=== PATIENT | female | born 1965 | race Caucasian/White ===

== ENCOUNTER 2016-08-06 09:03 | Emergency (ER) | payer SELFPAY ==
--- NOTE | 2016-08-06 09:20 | Emergency Department Record ---
History of Present Illness - General Chief complaint: Itching Stated complaint: ITCHING ALL OVER Time Seen by Provider: 08/06/16 09:19 Source: Patient Mode of Arrival: Ambulatory Limitations: No limitations - History of Present Illness Initial comments: The patient has been staying in a motel for almost a week and now is here due to an itchy rash for 3-4 days. She denies any new medicines, foods, but is using new soaps, towels and is sleeping in different sheets. She denies any recent illnesses, new medicines or visualizing any insects at the motel. She would like to know what she is allergic to. MD complaint: Rash Onset/Timin -: Days(s) Location: Generalized Severity: Severe Quality: Other Consistency: Constant Improves with: None Worsens with: None Context: None Associated symptoms: Itching Treatments Prior to Arrival: None - Related Data Previous Rx's Medication Instructions Recorded Prednisone [Prednisone 20Mg] 40 mg PO DAILY #10 tab 08/06/16 Allergies Allergy/AdvReac Type Severity Reaction Status Date / Time No Known Drug Allergies Allergy Verified 08/06/16 09:16 Travel Screening - Travel/Exposure Within Last 30 Days Have you traveled within the last 30 days?: No Review of Systems Constitutional: Denies: Chills, Fever Eyes: Denies: Eye discharge ENT: Denies: Congestion Respiratory: Denies: Cough, Dyspnea Past Medical History - SOCIAL HISTORY Smoking Status: Current every day smoker Alcohol Use: None Drug Use: None - RESPIRATORY Hx Respiratory Disorders: No - CARDIOVASCULAR Hx Cardio Disorders: No - NEURO Hx Neuro Disorders: No - GI Hx GI Disorders: No - Hx Genitourinary Disorders: No - ENDOCRINE Hx Endocrine Disorders: No - MUSCULOSKELETAL Hx Musculoskeletal Disorders: No - PSYCH Hx Psych Problems: No - HEMATOLOGY/ONCOLOGY Hx Hematology/Oncology Disorders: No Family Medical History Any Significant Family History?: Yes Physical Exam - General General Appearance: Alert, Oriented x3, Cooperative, No acute distress - Head Head exam: Atraumatic, Normocephalic, Normal inspection - Eye Eye exam: Normal appearance, PERRL - ENT Throat exam: Normal inspection. negative: Tonsillar erythema, Tonsillar exudate - Neck Neck exam: Normal inspection, Full ROM. negative: Tenderness - Respiratory Respiratory exam: Normal lung sounds bilaterally. negative: Respiratory distress - Cardiovascular Cardiovascular Exam: Regular rate, Normal rhythm, Normal heart sounds - Extremities Extremities exam: Normal inspection, Full ROM, Normal capillary refill. negative: Tenderness - Skin Skin exam: Rash (There is a diffuse blanching erythroderma type rash mainly on the trunk and minimally the extremities. There are no areas of bug bites or wounds.) Course Vital Signs 08/06/16 09:09 Temperature 97.6 F Pulse Rate 87 Respiratory 20 Rate Blood Pressure 132/67 Pulse Ox 96 - Reevaluation(s) Reevaluation #1: I explained to the patient that she appears to be having a minor allergix rxn to something she came in contact with. She is to take the Pred. and Benadryl and see her PCP if not better. 08/06/16 09:28 Disposition Disposition: Discharge Clinical Impression: Dermatitis Disposition: Home, Self-Care Condition: (2) Stable Instructions: Contact Dermatitis (ED) Additional Instructions: Please take Benadryl for the itching as directed until better. Please take the Prednisone also. If not better in 2 days please see your PCP for recheck or return to the ER if worse. Prescriptions: Prednisone [Prednisone 20Mg] 40 mg PO DAILY #10 tab Forms: Patient Portal Access Time of Disposition: 09:25
== END 2016-08-06 09:29 | disposition home or self-care (01) ==
LOC: ER 09:03
DX: L30.9 Dermatitis, unspecified (principal)
CPT/HCPCS: 99282

== ENCOUNTER 2017-01-04 00:01 | Emergency (ER) | payer SELFPAY ==
[2017-01-04] MEDS ORDERED: AMOXICILLIN 500MG CAPSULE PO ONE (00:38)
[2017-01-04] MEDS ORDERED: HYDROCODONE/APAP 5/325MG TABLET PO ONE (00:39)
--- NOTE | 2017-01-04 00:45 | Emergency Department Record ---
History of Present Illness - General Chief complaint: ENT Stated complaint: RIGHT EAR PAIN Time Seen by Provider: 01/04/17 00:21 Source: Patient Mode of Arrival: Ambulatory Limitations: No limitations - History of Present Illness Initial comments: pt has ear pain w drainage for 3 days. pt has hx of ear infections complaint: Ear pain Onset/Timin -: Days(s) Location: R ear Severity: Moderate Severity scale (1-10): >10 Quality: Sharp, Stabbing Consistency: Constant Improves with: Other Worsens with: Position Context- Ear: Other Associated Symptoms: Discharge from ear - Related Data Previous Rx's Medication Instructions Recorded Amoxicillin 500Mg Capsule [Amoxil] 500 mg PO TID #30 tab 01/04/17 Allergies Allergy/AdvReac Type Severity Reaction Status Date / Time No Known Drug Allergies Allergy Verified 08/06/16 09:16 Travel Screening - Travel/Exposure Within Last 30 Days Have you traveled within the last 30 days?: No Review of Systems Reviewed: No additional complaints except as noted below Constitutional: Reports: As per HPI. Denies: Chills, Fever, Malaise, Night sweats, Weakness, Weight change Eyes: Reports: As per HPI. Denies: Eye discharge, Eye pain, Photophobia, Vision change ENT: Reports: As per HPI. Denies: Congestion, Dental pain, Ear pain, Epistaxis , Hearing loss, Throat pain Respiratory: Reports: As per HPI. Denies: Cough, Dyspnea, Hemoptysis, Stridor, Wheezes Cardiovascular: Reports: As per HPI. Denies: Arrhythmia, Chest pain, Dyspnea on exertion, Edema, Murmurs, Orthopnea, Palpitations, Paroxysmal nocturnal dyspnea, Rheumatic Fever, Syncope Endocrine: Reports: As per HPI. Denies: Fatigue, Heat or cold intolerance, Polydipsia, Polyuria Gastrointestinal: Reports: As per HPI. Denies: Abdominal pain, Constipation, Diarrhea, Hematemesis, Hematochezia, Melena, Nausea, Vomiting Genitourinary: Reports: As per HPI. Denies: Abnormal menses, Discharge, Dyspareunia, Dysuria, Frequency, Hematuria, Incontinence, Retention, Urgency Musculoskeletal: Reports: As per HPI. Denies: Arthralgia, Back pain, Gout, Joint swelling, Myalgia, Neck pain Skin: Reports: As per HPI. Denies: Bruising, Change in color, Change in hair/ nails, Lesions, Pruritus, Rash Neurological: Reports: As per HPI. Denies: Abnormal gait, Confusion, Headache, Numbness, Paresthesias, Seizure, Tingling, Tremors, Vertigo, Weakness Psychiatric: Reports: As per HPI. Denies: Anxiety, Auditory hallucinations, Depression, Homicidal thoughts, Suicidal thoughts, Visual hallucinations Hematological/Lymphatic: Reports: As per HPI. Denies: Anemia, Blood Clots, Easy bleeding, Easy bruising, Swollen glands Past Medical History - SOCIAL HISTORY Smoking Status: Current every day smoker Alcohol Use: None Drug Use: None - RESPIRATORY Hx Respiratory Disorders: No - CARDIOVASCULAR Hx Cardio Disorders: No - NEURO Hx Neuro Disorders: No - GI Hx GI Disorders: No - Hx Genitourinary Disorders: No - ENDOCRINE Hx Endocrine Disorders: No - MUSCULOSKELETAL Hx Musculoskeletal Disorders: No - PSYCH Hx Psych Problems: No - HEMATOLOGY/ONCOLOGY Hx Hematology/Oncology Disorders: No Family Medical History Any Significant Family History?: No Family Hx Comment (NOT TO BE USED IN PLACE OF ITEMS BELOW): DENIES Physical Exam - General General Appearance: Alert, Oriented x3, Cooperative, Mild distress - Head Head exam: Normal inspection - Eye Eye exam: Normal appearance, PERRL, EOMI Pupils: Normal accommodation - ENT ENT exam: Normal exam, Mucous membranes moist, Normal external ear exam, Normal orophraynx, Other (r tm erythematous w drainage) Ear exam: Normal external inspection. negative: External canal tenderness Nasal Exam: Normal inspection. negative: Discharge, Sinus tenderness Mouth exam: Normal external inspection, Tongue normal Teeth exam: Normal inspection. negative: Dental caries Throat exam: Normal inspection. negative: Tonsillar erythema, Tonsillar exudate - Neck Neck exam: Normal inspection, Full ROM. negative: Tenderness - Respiratory Respiratory exam: Normal lung sounds bilaterally. negative: Respiratory distress - Cardiovascular Cardiovascular Exam: Regular rate, Normal rhythm, Normal heart sounds - GI/Abdominal GI/Abdominal exam: Soft, Normal bowel sounds. negative: Tenderness - Rectal Rectal exam: Deferred - exam: Deferred - Extremities Extremities exam: Normal inspection, Full ROM, Normal capillary refill. negative: Tenderness - Back Back exam: Reports: Normal inspection, Full ROM. Denies: Muscle spasm, Rash noted, Tenderness - Neurological Neurological exam: Alert, CN II-XII intact, Normal gait, Oriented X3 - Psychiatric Psychiatric exam: Normal affect, Normal mood - Skin Skin exam: Dry, Intact, Normal color, Warm Course Vital Signs 01/04/17 00:10 Temperature 98.2 F Pulse Rate [ 88 Pulse Ox Probe] Respiratory 20 Rate Blood Pressure 131/83 [Left Arm] Pulse Ox 95 Disposition Disposition: Discharge Clinical Impression: Otitis media Qualifiers: Otitis media type: suppurative Chronicity: acute Laterality: right Recurrence: recurrent Spontaneous tympanic membrane rupture: with spontaneous rupture Qualified Code(s): H66.014 - Acute suppurative otitis media with spontaneous rupture of ear drum, recurrent, right ear Disposition: Home, Self-Care Condition: (1) Good Instructions: Otitis Media (ED) Additional Instructions: follow up with family doctor. return sooner if worse Prescriptions: Amoxicillin 500Mg Capsule [Amoxil] 500 mg PO TID #30 tab Forms: Patient Portal Access Quality - Quality Measures Quality Measures: N/A - Blood Pressure Screening Blood Pressure Classification: Pre-Hypertensive BP Reading Systolic Measurement: 131 Diastolic Measurement: 83 Screening for High Blood Pressure: < Pre-Hypertensive BP, F/U Documented > [ G8950] Pre-Hypertensive Follow-up Interventions: Follow-up with rescreen every year.
== END 2017-01-04 00:54 | disposition home or self-care (01) ==
LOC: ER 00:01
DX: H66.014 Acute suppurative otitis media with spontaneous rupture of ear drum, recurrent, right ear (principal)
CPT/HCPCS: 99282

== ENCOUNTER 2017-02-28 16:12 | Emergency (ER) | payer MEDICAID ==
--- NOTE | 2017-02-28 16:25 | Emergency Department Record ---
History of Present Illness - General Stated Complaint: chest pain Time Seen by Provider: 02/28/17 16:16 Source: Patient Mode of Arrival: Ambulatory Limitations: No limitations - History of Present Illness Initial Comments: 51 yo female presents with chest pain that started yesterday. The pain is over the left chest and she feels short of breath. No history of the same. No know CAD. No radiation to the back. The pain has been fairly constant since 9am with some fluctuations in intensity. She is a smoker. No medications. The pain first occurred yesterday morning. She woke up pain free today. She was at work when this started today around 9am. It never completely resolved but would fluctuate in intensity. MD Complaint: Chest pain -: Days(s) (1) Onset: During rest Pain Location: Left chest Severity: Severe Quality: Aching Consistency: Constant Improves With: Nothing Worsens With: Nothing, Movement Anginal Symptoms: Dyspnea - Related Data Home Medications Medication Instructions Recorded Confirmed Last Taken No Home Med [NO HOME MEDS] 02/28/17 02/28/17 Unknown Allergies Allergy/AdvReac Type Severity Reaction Status Date / Time bee pollen Allergy DIFFICULTY Verified 02/28/17 16:26 BREATHING Review of Systems Constitutional: Denies: Chills, Fever, Malaise, Weakness Eyes: Denies: Eye discharge ENT: Denies: Congestion, Throat pain Respiratory: Reports: Dyspnea. Denies: Cough, Hemoptysis, Stridor, Wheezes Cardiovascular: Reports: Chest pain. Denies: Palpitations, Syncope Endocrine: Denies: Fatigue Gastrointestinal: Denies: Abdominal pain, Diarrhea, Nausea, Vomiting Genitourinary: Denies: Dysuria, Urgency Musculoskeletal: Denies: Arthralgia, Back pain, Myalgia, Neck pain Skin: Denies: Bruising, Change in color, Rash Neurological: Denies: Confusion, Headache, Numbness Psychiatric: Denies: Anxiety Hematological/Lymphatic: Denies: Blood Clots, Easy bleeding, Easy bruising, Swollen glands Past Medical History - SOCIAL HISTORY Smoking Status: Current every day smoker Drug Use: None - RESPIRATORY Hx Respiratory Disorders: No - CARDIOVASCULAR Hx Cardio Disorders: No - NEURO Hx Neuro Disorders: No - GI Hx GI Disorders: No - Hx Genitourinary Disorders: No - ENDOCRINE Hx Endocrine Disorders: No - MUSCULOSKELETAL Hx Musculoskeletal Disorders: No - PSYCH Hx Psych Problems: No - HEMATOLOGY/ONCOLOGY Hx Hematology/Oncology Disorders: No Family Medical History Family Hx Comment (NOT TO BE USED IN PLACE OF ITEMS BELOW): DENIES Physical Exam - General General Appearance: Alert, Oriented x3, Cooperative, No acute distress, Anxious - Head Head exam: Atraumatic, Normocephalic, Normal inspection - Eye Eye exam: Normal appearance. negative: Conjunctival injection, Periorbital swelling - ENT ENT exam: Normal exam, Mucous membranes moist Ear exam: Normal external inspection Nasal Exam: Normal inspection Mouth exam: Normal external inspection - Neck Neck exam: Normal inspection, Full ROM. negative: Tenderness - Respiratory Respiratory exam: Normal lung sounds bilaterally, Chest wall tenderness (tender left chest anterior ). negative: Decreased breath sounds, Rhonchi, Stridor, Wheezes - Cardiovascular Cardiovascular Exam: Normal rhythm, Normal heart sounds, Tachycardia. negative : Diastolic murmur, Systolic murmur Peripheral Pulses: 2+: Radial (R), Radial (L) - GI/Abdominal GI/Abdominal exam: Soft. negative: Tenderness - Rectal Rectal exam: Deferred - exam: Deferred - Extremities Extremities exam: Normal inspection, Full ROM, Normal capillary refill. negative: Calf tenderness, Pedal edema, Tenderness - Back Back exam: Reports: Normal inspection, Full ROM. Denies: Muscle spasm, Rash noted, Tenderness - Neurological Neurological exam: Alert, Normal gait, Oriented X3, Reflexes normal - Psychiatric Psychiatric exam: Normal affect, Normal mood Course - Reevaluation(s) Reevaluation #1: EKG 16:10 sinus tach with a rate of 104, intervals normal, axis left, poor r wave progression, with NS anterior T waves changes. An EKG from 03/24/14 was reviewed with the same T wave inversion in the V1-V3 with similar poor r wave. The prior EKG is very similar with little to no dynamic changes from each other. 02/28/17 16:22 02/28/17 16:28 The patient states the pain is quickly resolving at this time. She is much improved and relaxed. 02/28/17 16:40 EKG#2 Mery 88, intervals normal axis left, poor R wave with anterior T changes. No changes from 2013 EKG 02/28/17 16:44 The patient is 0/10 pain at this time. She has had one nitro and aspirin. 02/28/17 17:37 The labs were reviewed No acute changes of the troponin Reevaluation #2: CXR with left sided PTX 2cm The patient was informed of the findings She is comfortable without any pain or shortness of breath. 02/28/17 18:36 02/28/17 19:07 I discussed the need for transfer with the patient I KATIE Green at [facility] [place], [place] She accepts the patient for transfer The patient is resting comfortably, no distress She is stable for transfer without chest tube at this point Dr Green is aware and in agreement given the demonstrated stability 02/28/17 19:33 Very comfortable and stable at transfer with EMS Medical Decision Making - Lab Data Result diagrams: 02/28/17 16:30 02/28/17 16:30 Disposition Disposition: Transfer Clinical Impression: Pneumothorax Chest pain Qualifiers: Chest pain type: unspecified Qualified Code(s): R07.9 - Chest pain, unspecified Disposition: Acute Care Hospital Transfer Transfer To: [facility] [place] [place] Reason For Transfer: Pneumothorax Accepting Physician: Norma Time Discussed w/Accepting Physician: 19:00 Condition: (1) Good Time of Disposition: 18:49 Quality - Quality Measures Quality Measures: N/A - Blood Pressure Screening Does Patient Have Any of the Following: No Blood Pressure Classification: Pre-Hypertensive BP Reading Systolic Measurement: 146 Diastolic Measurement: 89 Screening for High Blood Pressure: < Pre-Hypertensive BP, F/U Documented > [ G8950] Pre-Hypertensive Follow-up Interventions: Referral to alternative/primary care provider.
[2017-02-28] MEDS: ASPIRIN 325 MG TABLET PO ONE (16:29)
[2017-02-28 16:35] LABS: BASO % 0.3 % (0-6); EOS % 1.9 % (0-6); GRAN % 66.9 % (47-80); HEMATOCRIT 46.6 % (35.0-47.0); HEMOGLOBIN 15.9 gm/dl (11.6-16.0); MEAN CELL VOLUME 94.9 fl (81-97); MEAN CORPUSCULAR HEMOGLOBIN 32.4 pg (27-33); MEAN CORPUSCULAR HGB CONC 34.1 g/dl (32-36); MEAN PLATELET VOLUME 11.4 fl (7.4-10.4); MONO % 5.9 % (0-9); PLATELET COUNT 242 K/uL (130-400); RED BLOOD COUNT 4.91 M/uL (3.80-5.40); RED CELL DISTRIBUTION WIDTH 14.2 % (11.5-14.5); WHITE BLOOD COUNT W/O DIFF 11.9 K/uL (4.2-12.2)
[2017-02-28] MEDS: NITROGLYCERIN 0.4MG SL TABLET #25 BTL SL PRN (16:37)
[2017-02-28 16:52] LABS: INR 1.01; PARTIAL THROMBOPLASTIN TIME 29.1 SECONDS (24.5-39.1); PROTHROMBIN TIME (PATIENT) 10.9 SECONDS (9.5-12.1)
[2017-02-28 16:58] LABS: ALB/GLOB RATIO 1.1 (1.1-1.8); ALKALINE PHOSPHATASE 85 U/L (35-104); ALT/SGPT 7 U/L (<33); AST/SGOT 15 U/L (10.0-35.0); BLOOD UREA NITROGEN 15 mg/dL (6-20); CKMB 1.6 ng/mL (<3.77); CREATINE PHOSPHOKINASE 66 U/L (26-192); CREATININE 0.7 mg/dL (0.5-0.9); EST GLOMERULAR FILTRATION RATE > 60 mL/min; GLUCOSE,RANDOM 113 mg/dL (74-109); TOTAL PROTEIN 7.5 g/dL (6.6-8.7)
[2017-02-28 16:59] LABS: TROPONIN I < 0.30 ng/mL (0.00-0.300)
--- NOTE | 2017-03-02 09:15 | RADIOLOGY REPORT ---
EXAM: CHEST, TWO VIEWS HISTORY: DIFFICULTY BREATHING. TECHNIQUE: Frontal and lateral views of the chest were performed. FINDINGS: There is a left pneumothorax with pleural separation at 2.2 cm. The heart size is normal. IMPRESSION: LEFT SIDED PNEUMOTHORAX. THERE IS PLEURAL SEPARATION AT 2.2 CM. THE REMAINING LUNG FRANCISCO ARE CLEAR. JOB NUMBER: [id number] MTDD
== END 2017-02-28 19:33 | disposition short-term general hospital (02) ==
LOC: ER 16:12
DX: J93.83 Other pneumothorax (principal); R06.02 Shortness of breath; F17.210 Nicotine dependence, cigarettes, uncomplicated
CPT/HCPCS: 71020; 80048; 80053; 82550; 82553; 83880; 84484; 85025; 85379; 85610; 85730; 93005; 93010; 99285

== ENCOUNTER 2017-03-19 13:09 | Emergency (ER) | payer MEDICAID ==
--- NOTE | 2017-03-19 13:45 | Emergency Department Record ---
History of Present Illness - General Chief complaint: Rash Stated complaint: LT SIDE TORSO RED/RASH,NAUSEA, Time Seen by Provider: 03/19/17 13:44 Source: Patient Mode of Arrival: Ambulatory - History of Present Illness Initial comments: patient has redness on the left chest which started a couple days after she left the hospital . The redness is itchy and she had a chest tube in that spot and was at [facility] with a chest tube. No dyspnea now and she aches in the area of the chest left where the chest tube placed. Onset/Timin -: Week(s) Location: Chest Severity: Moderate Severity scale (1-10): 1 Quality: Aching - Related Data Previous Rx's Medication Instructions Recorded Amoxicillin/Potassium Clav 1 each PO TID #30 tablet 03/19/17 [Augmentin 500-125 Tablet] Triamcinolone Acet Cream [Kenalog 1 apply TP BID #30 gm 03/19/17 Cream] Allergies Allergy/AdvReac Type Severity Reaction Status Date / Time bee pollen Allergy DIFFICULTY Verified 03/19/17 13:27 BREATHING Travel Screening - Travel/Exposure Within Last 30 Days Have you traveled within the last 30 days?: No - Travel/Exposure Within Last Year Have you traveled outside the [place] in the last year?: No - Additonal Travel Details Have you been exposed to anyone with a communicable illness?: No - Travel Symptoms Symptom Screening: None Review of Systems Reviewed: No additional complaints except as noted below Constitutional: Reports: As per HPI. Denies: Chills, Fever, Malaise, Night sweats, Weakness, Weight change Eyes: Reports: As per HPI. Denies: Eye discharge, Eye pain, Photophobia, Vision change ENT: Reports: As per HPI. Denies: Congestion, Dental pain, Ear pain, Epistaxis , Hearing loss, Throat pain Respiratory: Reports: As per HPI. Denies: Cough, Dyspnea, Hemoptysis, Stridor, Wheezes Cardiovascular: Reports: As per HPI. Denies: Arrhythmia, Chest pain, Dyspnea on exertion, Edema, Murmurs, Orthopnea, Palpitations, Paroxysmal nocturnal dyspnea, Rheumatic Fever, Syncope Endocrine: Reports: As per HPI. Denies: Fatigue, Heat or cold intolerance, Polydipsia, Polyuria Gastrointestinal: Reports: As per HPI. Denies: Abdominal pain, Constipation, Diarrhea, Hematemesis, Hematochezia, Melena, Nausea, Vomiting Genitourinary: Reports: As per HPI. Denies: Abnormal menses, Discharge, Dyspareunia, Dysuria, Frequency, Hematuria, Incontinence, Retention, Urgency Musculoskeletal: Reports: As per HPI. Denies: Arthralgia, Back pain, Gout, Joint swelling, Myalgia, Neck pain Skin: Reports: As per HPI, Rash. Denies: Bruising, Change in color, Change in hair/nails, Lesions, Pruritus Neurological: Reports: As per HPI. Denies: Abnormal gait, Confusion, Headache, Numbness, Paresthesias, Seizure, Tingling, Tremors, Vertigo, Weakness Psychiatric: Reports: As per HPI. Denies: Anxiety, Auditory hallucinations, Depression, Homicidal thoughts, Suicidal thoughts, Visual hallucinations Hematological/Lymphatic: Reports: As per HPI. Denies: Anemia, Blood Clots, Easy bleeding, Easy bruising, Swollen glands Past Medical History - SOCIAL HISTORY Smoking Status: Current every day smoker Alcohol Use: None Drug Use: None - RESPIRATORY Hx Respiratory Disorders: Yes Hx Bronchitis: Yes Hx COPD: Yes Comment:: recent chest [place] [facility] [place]IOVASC[place] Hx Cardio Disorders: Yes - NEURO Hx Neuro Disorders: No - GI Hx GI Disorders: No - Hx Genitourinary Disorders: No - ENDOCRINE Hx Endocrine Disorders: No - MUSCULOSKELETAL Hx Musculoskeletal Disorders: No - PSYCH Hx Psych Problems: No - HEMATOLOGY/ONCOLOGY Hx Hematology/Oncology Disorders: No Family Medical History Any Significant Family History?: Yes Family Hx Comment (NOT TO BE USED IN PLACE OF ITEMS BELOW): DENIES Physical Exam - General General Appearance: Alert, Oriented x3, Cooperative, No acute distress - Head Head exam: Normal inspection - Eye Eye exam: Normal appearance, PERRL Pupils: Normal accommodation - ENT ENT exam: Normal exam, Mucous membranes moist, Normal external ear exam, Normal orophraynx, TM's normal bilaterally Ear exam: Normal external inspection. negative: External canal tenderness Nasal Exam: Normal inspection. negative: Discharge, Sinus tenderness Mouth exam: Normal external inspection, Tongue normal Teeth exam: Normal inspection. negative: Dental caries Throat exam: Normal inspection. negative: Tonsillar erythema, Tonsillar exudate - Neck Neck exam: Normal inspection, Full ROM. negative: Tenderness - Respiratory Respiratory exam: Normal lung sounds bilaterally. negative: Respiratory distress - Cardiovascular Cardiovascular Exam: Regular rate, Normal rhythm, Normal heart sounds - GI/Abdominal GI/Abdominal exam: Soft, Normal bowel sounds. negative: Tenderness - Rectal Rectal exam: Deferred - exam: Deferred - Extremities Extremities exam: Normal inspection, Full ROM, Normal capillary refill. negative: Tenderness - Back Back exam: Reports: Normal inspection, Full ROM. Denies: Muscle spasm, Rash noted, Tenderness - Neurological Neurological exam: Alert, Normal gait, Oriented X3, Reflexes normal - Psychiatric Psychiatric exam: Normal affect, Normal mood - Skin Skin exam: Dry, Intact, Normal color, Warm Description of rash: Erythematous (itchy rash) Course Vital Signs 03/19/17 13:15 Temperature 99.4 F Pulse Rate 81 Respiratory 16 Rate Blood Pressure 113/70 Pulse Ox 95 Medical Decision Making - Data Complexity MDM Data: Labs Ordered and/or Reviewed, X-Ray Ordered and/or Reviewed (chest xray neg for a pneumothorax) - Lab Data Result diagrams: 03/19/17 14:29 Disposition Clinical Impression: Dermatitis Cellulitis Qualifiers: Site of cellulitis: trunk Site of cellulitis of trunk: chest wall Qualified Code(s): L03.313 - Cellulitis of chest wall Disposition: Home, Self-Care Condition: (1) Good Instructions: Urticaria (ED), Cellulitis (ED) Additional Instructions: follow up with family in one week augmentin 500 mg Three times a day benadryl 25 mg every 6 hours Prescriptions: Amoxicillin/Potassium Clav [Augmentin 500-125 Tablet] 1 each PO TID #30 tablet Triamcinolone Acet Cream [Kenalog Cream] 1 apply TP BID #30 gm Forms: Patient Portal Access Time of Disposition: 14:49 Quality - Quality Measures Quality Measures: N/A - Blood Pressure Screening Does Patient Have Any of the Following: No Blood Pressure Classification: Normal BP Reading Systolic Measurement: 113 Diastolic Measurement: 70 Screening for High Blood Pressure: < Normal BP, F/U Not Required > [G8783]
[2017-03-19 14:32] LABS: BASO % 0.4 % (0-6); EOS % 4.2 % (0-6); GRAN % 72.5 % (47-80); HEMATOCRIT 40.8 % (35.0-47.0); HEMOGLOBIN 13.7 gm/dl (11.6-16.0); LYMPH % 16.1 % (16-45); MEAN CELL VOLUME 96.7 fl (81-97); MEAN CORPUSCULAR HEMOGLOBIN 32.5 pg (27-33); MEAN CORPUSCULAR HGB CONC 33.6 g/dl (32-36); MEAN PLATELET VOLUME 11.8 fl (7.4-10.4); MONO % 6.8 % (0-9); PLATELET COUNT 239 K/uL (130-400); RED BLOOD COUNT 4.22 M/uL (3.80-5.40); RED CELL DISTRIBUTION WIDTH 13.8 % (11.5-14.5); WHITE BLOOD COUNT W/O DIFF 10.6 K/uL (4.2-12.2)
--- NOTE | 2017-03-20 09:42 | RADIOLOGY REPORT ---
EXAM: CHEST, TWO VIEWS HISTORY: COUGH. TECHNIQUE: Frontal and lateral views of the chest were obtained. Comparison: 02/28/17 chest. FINDINGS: The heart size is normal. Interval resolution of the previously noted left sided pneumothorax. The lungs are hyperinflated, but otherwise clear. IMPRESSION: UNDERLYING HYPERINFLATION. RESOLUTION OF THE PREVIOUSLY NOTED PNEUMOTHORAX. JOB NUMBER: [id number] MTDD
== END 2017-03-19 15:11 | disposition home or self-care (01) ==
LOC: ER 13:09
DX: L03.313 Cellulitis of chest wall (principal); R05 Cough; F17.210 Nicotine dependence, cigarettes, uncomplicated
CPT/HCPCS: 71020; 85025; 99283

== ENCOUNTER 2017-05-08 08:26 | Emergency (ER) | payer MEDICAID ==
--- NOTE | 2017-05-08 08:50 | Emergency Department Record ---
History of Present Illness - General Chief Complaint: Shortness of breath Stated Complaint: KLEVER/RIGHT RIB PAIN Time Seen by Provider: 05/08/17 08:40 Source: Patient Mode of Arrival: Ambulatory Limitations: No limitations - History of Present Illness Initial Comments: The patient is here due to R lower rib pain for 3 days. She states she has developed a mild cough and sharp R lower lateral rib pain. The patient states she had a PTX 2 months ago and it feels similar. The cough is nonproductive and she does feel mild SOB at times. She denies any L sided pain, fever, chills, leg swelling, or back pain. The pain in the R ribs is only present with bending , twisting, or coughing. MD Complaint: Chest pain Onset/Timin -: Days(s) Radiation: Other Severity scale (1-10): 6 Quality: Other Consistency: Constant Improves With: Nothing Worsens With: Movement Known History Of: Other Associated Symptoms: Cough Treatments Prior to Arrival: None - Related Data Previous Rx's Medication Instructions Recorded Albuterol Sulfate [Proair Hfa] 2 puff IH QID PRN #1 inhaler 05/08/17 Allergies Allergy/AdvReac Type Severity Reaction Status Date / Time bee pollen Allergy DIFFICULTY Verified 03/19/17 13:27 BREATHING Travel Screening - Travel/Exposure Within Last 30 Days Have you traveled within the last 30 days?: No Review of Systems Constitutional: Denies: Chills Eyes: Denies: Eye discharge ENT: Reports: Congestion Respiratory: Reports: Cough, Dyspnea Past Medical History - SOCIAL HISTORY Smoking Status: Current every day smoker Alcohol Use: None Drug Use: None - RESPIRATORY Hx Respiratory Disorders: Yes Hx Bronchitis: Yes Hx COPD: Yes Comment:: recent chest tube with [place] [facility] [place] Hx Cardio Disorders: Yes - NEURO Hx Neuro Disorders: No - GI Hx GI Disorders: No - Hx Genitourinary Disorders: No - ENDOCRINE Hx Endocrine Disorders: No - MUSCULOSKELETAL Hx Musculoskeletal Disorders: No - PSYCH Hx Psych Problems: No - HEMATOLOGY/ONCOLOGY Hx Hematology/Oncology Disorders: No Family Medical History Any Significant Family History?: No Family Hx Comment (NOT TO BE USED IN PLACE OF ITEMS BELOW): DENIES Physical Exam - General General Appearance: Alert, Oriented x3, Cooperative, No acute distress - Head Head exam: Atraumatic, Normocephalic, Normal inspection - Eye Eye exam: Normal appearance, PERRL - Neck Neck exam: Normal inspection, Full ROM. negative: Tenderness - Respiratory Respiratory exam: Chest wall tenderness (The R rib pain is 100% reproducible to palpation over the R lower ribs.), Decreased breath sounds (mildly in the bases. ). negative: Normal lung sounds bilaterally, Accessory muscle use, Rales, Respiratory distress, Rhonchi, Stridor, Wheezes - Cardiovascular Cardiovascular Exam: Regular rate, Normal rhythm, Normal heart sounds - GI/Abdominal GI/Abdominal exam: Soft, Normal bowel sounds. negative: Tenderness - Extremities Extremities exam: Normal inspection, Full ROM, Normal capillary refill. negative: Tenderness Image of Full Body: 1 - Location of the R rib pain and tenderness. Course Vital Signs 05/08/17 08:32 Temperature 97.9 F Pulse Rate 69 Respiratory 20 Rate Blood Pressure 141/82 Pulse Ox 99 - Reevaluation(s) Reevaluation #1: The patient is resting comfortably in no distress. She is declining any pain medicines or breathing tx's. 05/08/17 09:24 Reevaluation #2: The patient is doing very well at this time. She still has the rib pain only with bending, twisting and coughing. I did offer a pain medicine script to the patient but she is refusing but she will use Albuterol. She is to see her PCP later this week for recheck. 05/08/17 09:37 Medical Decision Making - Data Complexity MDM Data: Labs Ordered and/or Reviewed, X-Ray Ordered and/or Reviewed - Lab Data Result diagrams: 05/08/17 08:50 05/08/17 08:50 - Radiology Data Radiology results: Report reviewed (CXR: COPD, Neg for PTX or infiltrate.) Disposition Disposition: Discharge Clinical Impression: Chest wall pain Disposition: Home, Self-Care Condition: (2) Stable Instructions: Chest Wall Pain (ED) Additional Instructions: Please take OTC pain medicines as needed and please use the Albuterol as directed and cut back on the smoking. Please see your PCP for recheck later this week. Return to the ER for any worsening symptoms. Prescriptions: Albuterol Sulfate [Proair Hfa] 2 puff IH QID PRN #1 inhaler PRN Reason: Cough And Difficulty Breathing Forms: Patient Portal Access Time of Disposition: 09:40 Quality - Quality Measures Quality Measures: N/A - Blood Pressure Screening View Details: Yes Does Patient Have Any of the Following: No Blood Pressure Classification: Pre-Hypertensive BP Reading Systolic Measurement: 141 Diastolic Measurement: 82 Screening for High Blood Pressure: < Pre-Hypertensive BP, F/U Documented > [ G8950] Pre-Hypertensive Follow-up Interventions: Referral to alternative/primary care provider.
[2017-05-08 09:00] LABS: BASO % 0.4 % (0-6); EOS % 6.5 % (0-6); GRAN % 63.5 % (47-80); HEMATOCRIT 44.5 % (35.0-47.0); MEAN CELL VOLUME 97.8 fl (81-97); MEAN CORPUSCULAR HGB CONC 33.7 g/dl (32-36); MEAN PLATELET VOLUME 11.1 fl (7.4-10.4); MONO % 5.6 % (0-9); PLATELET COUNT 224 K/uL (130-400); RED BLOOD COUNT 4.55 M/uL (3.80-5.40); WHITE BLOOD COUNT W/O DIFF 7.7 K/uL (4.2-12.2)
[2017-05-08 09:08] LABS: BLOOD UREA NITROGEN 6 mg/dL (6-20); CREATININE 0.7 mg/dL (0.5-0.9); EST GLOMERULAR FILTRATION RATE > 60 mL/min
[2017-05-08 09:11] LABS: GLUCOSE,RANDOM 103 mg/dL (74-109)
--- NOTE | 2017-05-08 09:23 | RADIOLOGY REPORT ---
EXAM: CHEST, TWO VIEWS HISTORY: PAIN LOWER RIGHT CHEST. TECHNIQUE: PA and lateral views of the chest were obtained. Comparison: Two view chest 03/19/17. FINDINGS: The lungs again appear hyperinflated suggesting underlying COPD. Mild apical pleural thickening bilaterally. No definite acute infiltrate is seen and no pneumothorax or pleural effusion evident. Mild thoracic curve to the right. IMPRESSION: 1. HYPERINFLATION SUGGESTING COPD. 2. NO DEFINITE ACUTE INFILTRATE OR PNEUMOTHORAX EVIDENT. 3. MILD THORACIC CURVE TO THE RIGHT. JOB NUMBER: [id number] [facility]
== END 2017-05-08 09:45 | disposition home or self-care (01) ==
LOC: ER 08:26
DX: R07.89 Other chest pain (principal); R06.02 Shortness of breath; J44.9 Chronic obstructive pulmonary disease, unspecified; F17.210 Nicotine dependence, cigarettes, uncomplicated
CPT/HCPCS: 71020; 80048; 85025; 85379; 99283; 99284

== ENCOUNTER 2017-06-23 22:57 | Emergency (ER) | payer MEDICAID ==
[2017-06-24 00:22] LABS: URINE APPEARANCE CLEAR; URINE BILIRUBIN NEGATIVE (NEGATIVE); URINE BLOOD NEGATIVE (NEGATIVE); URINE COLOR YELLOW; URINE GLUCOSE (UA) NEGATIVE (NEGATIVE); URINE KETONE NEGATIVE (NEGATIVE); URINE LEUKOCYTE ESTERASE NEGATIVE (NEGATIVE); URINE NITRITE NEGATIVE (NEGATIVE); URINE PROTEIN NEGATIVE (NEGATIVE); URINE UROBILINOGEN 0.2 E.U./dL (0.20 - 1.00)
[2017-06-24 00:51] LABS: BASO % 0.4 % (0-6); EOS % 3.9 % (0-6); GRAN % 68.3 % (47-80); HEMATOCRIT 46.8 % (35.0-47.0); HEMOGLOBIN 15.8 gm/dl (11.6-16.0); LYMPH % 21.1 % (16-45); MEAN CELL VOLUME 97.1 fl (81-97); MEAN CORPUSCULAR HEMOGLOBIN 32.8 pg (27-33); MEAN CORPUSCULAR HGB CONC 33.8 g/dl (32-36); MEAN PLATELET VOLUME 11.3 fl (7.4-10.4); MONO % 6.3 % (0-9); PLATELET COUNT 228 K/uL (130-400); RED BLOOD COUNT 4.82 M/uL (3.80-5.40); RED CELL DISTRIBUTION WIDTH 13.7 % (11.5-14.5); WHITE BLOOD COUNT W/O DIFF 12.5 K/uL (4.2-12.2)
[2017-06-24 01:10] LABS: CKMB < 1.0 ng/mL (<3.77)
--- NOTE | 2017-06-24 01:15 | Emergency Department Record ---
History of Present Illness - General Chief Complaint: Dizziness Stated Complaint: DIZZY AND NOT FEELING WELL Time Seen by Provider: 06/24/17 00:14 Source: Patient Mode of Arrival: Ambulatory Limitations: No limitations - History of Present Illness Initial Comments: pt c/o getting light headed frequently and feeling like she is going to pass out. she has no other symtoms MD Complaint: Dizziness, Lightheadedness, Near syncope Onset/Timin -: Week(s) Timing: Unsure Description: Lightheadedness, Nausea History of Same: No History of Trauma: No Improves With: Rest Worsens With: Movement, Position - Joshua Coma Scale Eye Response: (4) Open spontaneously Motor Response: (6) Obeys commands Verbal Response: (5) Oriented Joshua Total: 15 - Related Data Home Medications Medication Instructions Recorded Confirmed Last Taken Budesonide/Formoterol Fumarate 1 inh IH DAILY 06/23/17 06/23/17 Unknown [Symbicort 160-4.5 Mcg Inhaler] Previous Rx's Medication Instructions Recorded Albuterol Sulfate [Proair Hfa] 2 puff IH QID PRN #1 inhaler 05/08/17 Allergies Allergy/AdvReac Type Severity Reaction Status Date / Time bee pollen Allergy DIFFICULTY Verified 03/19/17 13:27 BREATHING Travel Screening - Travel/Exposure Within Last 30 Days Have you traveled within the last 30 days?: No - Travel Symptoms Symptom Screening: None Review of Systems Reviewed: No additional complaints except as noted below Constitutional: Reports: As per HPI. Denies: Chills, Fever, Malaise, Night sweats, Weakness, Weight change Eyes: Reports: As per HPI. Denies: Eye discharge, Eye pain, Photophobia, Vision change ENT: Reports: As per HPI. Denies: Congestion, Dental pain, Ear pain, Epistaxis , Hearing loss, Throat pain Respiratory: Reports: As per HPI. Denies: Cough, Dyspnea, Hemoptysis, Stridor, Wheezes Cardiovascular: Reports: As per HPI. Denies: Arrhythmia, Chest pain, Dyspnea on exertion, Edema, Murmurs, Orthopnea, Palpitations, Paroxysmal nocturnal dyspnea, Rheumatic Fever, Syncope Endocrine: Reports: As per HPI. Denies: Fatigue, Heat or cold intolerance, Polydipsia, Polyuria Gastrointestinal: Reports: As per HPI. Denies: Abdominal pain, Constipation, Diarrhea, Hematemesis, Hematochezia, Melena, Nausea, Vomiting Genitourinary: Reports: As per HPI. Denies: Abnormal menses, Discharge, Dyspareunia, Dysuria, Frequency, Hematuria, Incontinence, Retention, Urgency Musculoskeletal: Reports: As per HPI. Denies: Arthralgia, Back pain, Gout, Joint swelling, Myalgia, Neck pain Skin: Reports: As per HPI. Denies: Bruising, Change in color, Change in hair/ nails, Lesions, Pruritus, Rash Neurological: Reports: As per HPI. Denies: Abnormal gait, Confusion, Headache, Numbness, Paresthesias, Seizure, Tingling, Tremors, Vertigo, Weakness Psychiatric: Reports: As per HPI. Denies: Anxiety, Auditory hallucinations, Depression, Homicidal thoughts, Suicidal thoughts, Visual hallucinations Hematological/Lymphatic: Reports: As per HPI. Denies: Anemia, Blood Clots, Easy bleeding, Easy bruising, Swollen glands Past Medical History - SOCIAL HISTORY Smoking Status: Current every day smoker - RESPIRATORY Hx Respiratory Disorders: Yes Hx Bronchitis: Yes Hx COPD: Yes Comment:: recent chest tube with admission to [facility] [place] CARDIOVASCULAR Hx Cardio Disorders: Yes - NEURO Hx Neuro Disorders: No - GI Hx GI Disorders: No - Hx Genitourinary Disorders: No - ENDOCRINE Hx Endocrine Disorders: No - MUSCULOSKELETAL Hx Musculoskeletal Disorders: No - PSYCH Hx Psych Problems: No - HEMATOLOGY/ONCOLOGY Hx Hematology/Oncology Disorders: No Family Medical History Any Significant Family History?: No Family Hx Comment (NOT TO BE USED IN PLACE OF ITEMS BELOW): DENIES Physical Exam - General General Appearance: Alert, Oriented x3, Cooperative, Mild distress - Head Head exam: Normal inspection - Eye Eye exam: Normal appearance, PERRL, EOMI Pupils: Normal accommodation - ENT ENT exam: Normal exam, Mucous membranes moist, Normal external ear exam, Normal orophraynx Ear exam: Normal external inspection. negative: External canal tenderness Nasal Exam: Normal inspection. negative: Discharge, Sinus tenderness Mouth exam: Normal external inspection, Tongue normal Teeth exam: Normal inspection. negative: Dental caries Throat exam: Normal inspection. negative: Tonsillar erythema, Tonsillar exudate - Neck Neck exam: Normal inspection, Full ROM. negative: Tenderness - Respiratory Respiratory exam: Normal lung sounds bilaterally. negative: Respiratory distress - Cardiovascular Cardiovascular Exam: Regular rate, Normal rhythm, Normal heart sounds - GI/Abdominal GI/Abdominal exam: Soft, Normal bowel sounds. negative: Tenderness - Rectal Rectal exam: Deferred - exam: Deferred - Extremities Extremities exam: Normal inspection, Full ROM, Normal capillary refill. negative: Tenderness - Back Back exam: Reports: Normal inspection, Full ROM. 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 ] Respiratory 18 16 Rate Blood Pressure 158/85 Blood Pressure 147/85 [Left Arm] Pulse Ox 96 97 Medical Decision Making - Lab Data Result diagrams: 06/24/17 00:40 06/24/17 00:40 Lab Results 06/24/17 06/24/17 06/24/17 Range/Units 00:10 00:40 00:40 WBC 12.5 H (4.2-12.2) K/uL RBC 4.82 (3.80-5.40) M/uL Hgb 15.8 (11.6-16.0) gm/dl Hct 46.8 (35.0-47.0) % MCV 97.1 H (81-97) fl MCH 32.8 (27-33) pg MCHC 33.8 (32-36) g/dl RDW 13.7 (11.5-14.5) % Plt Count 228 (130-400) K/uL MPV 11.3 H (7.4-10.4) fl Gran % 68.3 (47-80) % Lymphocytes % 21.1 (16-45) % Monocytes % 6.3 (0-9) % Eosinophils % 3.9 (0-6) % Basophils % 0.4 (0-6) % CK-MB (CK-2) < 1.0 (<3.77) ng/mL Urine Color Yellow Urine Appearance Clear Urine pH 8.0 (5.0-8.0) Ur Specific [place] 1.010 (1.002-1.030) Urine Protein Negative (NEGATIVE) Urine Glucose (UA) Negative (NEGATIVE) Urine Ketones Negative (NEGATIVE) Urine Blood Negative (NEGATIVE) Urine Nitrite Negative (NEGATIVE) Urine Bilirubin Negative (NEGATIVE) Urine Urobilinogen 0.2 (0.20 - 1.00) E.U./dL Ur Leukocyte Esterase Negative (NEGATIVE) Disposition Disposition: Discharge Clinical Impression: Near syncope Disposition: Home, Self-Care Condition: (1) Good Instructions: Dizziness (ED) Additional Instructions: follow up with family doctor on monday without fail. have halter monitor. push fluids. rest Forms: Patient Portal Access Quality - Quality Measures Quality Measures: N/A - Blood Pressure Screening Does Patient Have Any of the Following: No Blood Pressure Classification: Pre-Hypertensive BP Reading Systolic Measurement: 158 Diastolic Measurement: 85 Screening for High Blood Pressure: < First Hypertensive BP, F/U Documented > [ G8950] First Hypertensive Follow-up Interventions: Follow-up with rescreen GT 1 day and LT 4 weeks.
[2017-06-24 01:22] LABS: BILIRUBIN,TOTAL < 0.20 mg/dL (0.2-1.0); BLOOD UREA NITROGEN 20 mg/dL (6-20); CREATININE 0.7 mg/dL (0.5-0.9); EST GLOMERULAR FILTRATION RATE > 60 mL/min; TOTAL PROTEIN 8.1 g/dL (6.6-8.7)
[2017-06-24 01:24] LABS: GLUCOSE,RANDOM 97 mg/dL (74-109)
[2017-06-24 01:27] LABS: ALBUMIN 4.4 g/dL (4.0-5.0); ALKALINE PHOSPHATASE 101 U/L (35-104); ALT/SGPT 12 U/L (<33); AST/SGOT 18 U/L (10.0-35.0)
[2017-06-24 01:38] LABS: BILIRUBIN,DIRECT < 0.2 mg/dL (0-0.3)
--- NOTE | 2017-06-24 12:28 | CT SCAN REPORT ---
DATE: 06/24/2017. EXAM: CT SCAN OF THE HEAD. HISTORY: Lightheadedness. TECHNIQUE: Serial axial CT scan of the head was performed at 2.5 mm intervals from the base of the skull to the apex without the use of intravenous contrast. COMPARISON: No comparison CTs are available. FINDINGS: The ventricles, cisterns, and sulci appear within normal limits for size, shape, and attenuation. There is no mass or mass effect. The great white differentiation appears within normal limits. There is no CT evidence of intra- or extraaxial fluid to suggest bleeding. The bone windows demonstrate no CT evidence of a fracture or dislocation of the skull. Mild mucosal thickening is noted within the paranasal sinuses suggesting mild chronic sinusitis. Clinical correlation is recommended. IMPRESSION: 1. NO CT EVIDENCE OF AN ACUTE INTRACRANIAL PROCESS. 2. MILD MUCOSAL THICKENING WITHIN THE PARANASAL SINUSES TO SUGGEST SOME MILD CHRONIC SINUSITIS. CLINICAL CORRELATION IS RECOMMENDED. JOB NUMBER: [id number] [facility]
== END 2017-06-24 02:03 | disposition home or self-care (01) ==
LOC: ER 22:57
DX: R55 Syncope and collapse (principal); R11.0 Nausea; F17.210 Nicotine dependence, cigarettes, uncomplicated
CPT/HCPCS: 70450; 80048; 80076; 81003; 82553; 85025; 93005; 93010; 99284